=== PATIENT | female | born 1970 | race African-American/Black ===

== ENCOUNTER 2018-11-22 11:25 | Emergency (ER) | payer BC ==
[~2018-11-22] VITALS: Ht 162.6 cm; Wt 112.9 kg
[2018-11-22 11:45] VITALS: BP 127/74
--- NOTE | 2018-11-22 11:49 | NUR ---
PATIENT AMBULATED TO BED #10
--- NOTE | 2018-11-22 12:05 | NUR ---
THIS 48 YEAR OLD FEMALE BIB SELF TO THE ED WITH THE CHIEF C/O KNEE PAIN SINCE FEW MONTHS. TAKING GABAPENTINE FOR PAIN. NO OTHER PAIN MEDS TAKEN FOR PAIN PER PT. DENIES ANY OTHER PROBLEM AT THIS TIME. AMBULATORY. PT HAS HX OF OSTEOARTHRITIS.
--- NOTE | 2018-11-22 12:19 | NUR ---
PT BEING SEEN BY ER AT THIS TIME.
[2018-11-22] MEDS ORDERED: KETOROLAC 60 MG/2 ML VIAL IM ONE (12:30)
[2018-11-22] MEDS ORDERED: DEXAMETHASONE 10 MG/ML VIAL IM ONE (12:30)
[2018-11-22 13:53] VITALS: BP 127/74
--- NOTE | 2018-11-22 13:54 | NUR ---
Patient discharged with v/s stable. Written and verbal after care instructions given and explained. Patient alert, oriented and verbalized understanding of instructions. Ambulatory with steady gait. All questions addressed prior to discharge. ID band removed. Patient advised to follow up with PMD. Rx of [facility] glucosamine chondroitin +d3 and voltaren given. Patient educated on indication of medication including possible reaction and side effects. Opportunity to ask questions provided and answered.
== END 2018-11-22 13:54 | disposition home or self-care (01) ==
LOC: MED 11:25
DX: M25.562 Pain in left knee (principal); M25.561 Pain in right knee; M41.9 Scoliosis, unspecified; J45.909 Unspecified asthma, uncomplicated; I10 Essential (primary) hypertension
CPT/HCPCS: 96372; 99283; J1100; J1885